=== PATIENT | male | born 1995 | race Caucasian/White ===

== ENCOUNTER 2016-11-18 13:20 | Emergency (ER) | payer OTHER ==
[~2016-11-18 13:20] MED LIST: CLONIDINE1 EAC1; DEPAKOTE (UD)250 MG; IRON TABLETS1 TAB; SEROQUEL; ZINC10 M1
== END 2016-11-18 14:20 | disposition home or self-care (01) ==
LOC: SED 13:20
DX: T47.0X5A Adverse effect of histamine H2-receptor blockers, initial encounter (principal)
CPT/HCPCS: 99283